=== PATIENT | male | born 1930 | race Caucasian/White ===

== ENCOUNTER 2016-05-17 02:36 | Emergency (ER) | payer OTHER ==
[~2016-05-17] VITALS: Ht 165.1 cm; Wt 64.1 kg
[~2016-05-17 02:36] MED LIST: AGM500 PO; CHOLESTEROL MED; DRV100 PO; LRT5 PO; MULT-506 PO; PANT40TA PO; PROM25TA PO; VITA400C15 PO
[2016-05-17 02:37] VITALS: TEMP 36.3; Ht 165.1 cm; Wt 64.1 kg
--- NOTE | 2016-05-17 03:08 | EMERGENCY ROOM VISIT NOTE ---
History Report prepared by Rico: Saundra Huggins Under the Supervision of: Dr. Suad Roldan M.D. First contact with patient: 02:44 Chief Complaint: LACERATION/CUT (SUT/DERMABOND) Stated Complaint: CUT YOU LEFT FOOT History of Present Illness The patient is an 86 year old male who presents to the Emergency Room with complaints of an episode of laceration on his left foot this evening. He states that he dropped a ceramic cup on his left foot. The wound then started to bleed. He denies any foot pain, taking any blood thinners or aspirin. The patient states that his tetanus shot is UTD. Source of History: patient Onset: this evening Position: foot (left) Quality: other (laceration) Timing: other (episode) Note: He denies any foot pain. Review of Systems See HPI for pertinent positives & negatives. A total of 6 systems reviewed and were otherwise negative. Past Medical & Surgical Medical Problems: (1) Abdominal pain Family History No pertinent family history Social History Smoking Status: Never Smoker Alcohol Use: none Drug Use: none Marital Status: Occupation Status: retired Current/Historical Medications No Active Prescriptions or Reported Meds Allergies Coded Allergies: No Known Allergies (Verified Allergy, Unknown, 10/08/06) Physical Exam Vital Signs Date Time Temp Pulse Resp B/P Pulse Ox O2 Delivery O2 Flow Rate FiO2 05/17/16 03:27 79 18 145/82 94 Room Air 05/17/16 02:37 36.3 88 20 148/89 94 Room Air Physical Exam Vital signs reviewed. General: Well-appearing male, in no significant distress. HEENT: No scleral icterus, PERRLA, neck supple. Atraumatic. Musculoskeletal: No peripheral edema. Neurologic: Patient awake alert and oriented x 3. There is a 1 cm superficial laceration, bleeding controlled, to the dorsal aspect of the left foot with no specific tenderness and no specific swelling. Skin: Warm, dry, no rash Medical Decision & Procedures ED Course 0252: Past medical records reviewed. The patient was evaluated in room B2. A complete history and physical examination was performed. 0319: Dermabond was applied to the wound. 0325: Upon reevaluation, the patient appeared to have improvement of his symptoms. I discussed findings with the patient. He verbalized agreement of the treatment plan. The patient was discharged home. Medical Decision The patient is an 86 year old male who presents to the ED with complaints of a laceration to his left foot. Differentials include: superficial laceration, tendon laceration, complex laceration, vascular laceration. This pt was evaluated and appeared to be in no distress. A blood soaked bandage was removed and the wound cleansed with NSS. An XR was ordered, pt refused. Wound was irrigated with NSS. Dermabond was applied and a dressing. Pt was given wound care instruction. He as d/c to f/u with PCP for reevaluation and to return to the ED for worsening of symptoms or any medical concerns. Impression Primary Impression: Laceration of lower extremity Scribe Attestation The scribe's documentation has been prepared under my direction and personally reviewed by me in its entirety. I confirm that the note above accurately reflects all work, treatment, procedures, and medical decision making performed by me. Departure Information Dispostion Home / Self-Care Prescriptions No Active Prescriptions or Reported Meds Forms HOME CARE DOCUMENTATION FORM, IMPORTANT VISIT INFORMATION Patient Instructions My [facility] Additional Instructions Diagnosis: Laceration of the foot. Do not apply antibiotic ointment. Wash with warm water and soap 1-2 times daily. Keep a clean dressing in place. Do not remove the Steri-Strips, they will follow-up on their own. Follow-up with your physician this week for reevaluation. Please double check that your tetanus status is up-to-date. Return to the ER for worsening of symptoms or any medical concerns. Problem Qualifiers Primary Impression: Laceration of lower extremity Encounter type: initial encounter Laterality: left Qualified Codes: S81.812A - Laceration without foreign body, left lower leg, initial encounter
[2016-05-17 03:27] VITALS: BP 145/82; PULSE 79; O2SAT 94
== END 2016-05-17 03:30 | disposition home or self-care (01) ==
LOC: C.EDB 02:37
DX: S91.312A Laceration without foreign body, left foot, initial encounter (principal); W22.8XXA Striking against or struck by other objects, initial encounter